=== PATIENT | female | born 1990 | race Caucasian/White ===

== ENCOUNTER 2016-10-09 06:00 | Inpatient (IN) ==
[2016-10-09] MEDS ORDERED: Famotidine 20 MG/2 ML VIAL IVP PRN (08:55)
[2016-10-09] MEDS ORDERED: Ondansetron 4 MG/2 ML VIAL IVP PRN (08:55)
[2016-10-09] MEDS ORDERED: Metoclopramide 10 MG/2 ML VIAL IVP PRN (08:55)
[2016-10-09] MEDS ORDERED: Naloxone 0.4 MG/ML INJ IVP PRN (08:55)
[2016-10-09] MEDS ORDERED: miSOPROStol 25 MCG TABLET VG PRN (08:55)
--- NOTE | 2016-10-09 09:13 | OB/GYN History & Physical ---
Date of Encounter: 10/09/16 Time of Encounter: 09:09 Assessment and Plan (1) Postmaturity , 40-42 weeks gestation Current visit: Yes Status: Acute Labor induction - Cytotec -Monitor normal progression. History of Present Illness HPI: Ms. Du is a 25 year old female who is otherwise healthy at 40 weeks and 4 days is presenting for labor induction due to failure of sponataneous labor and being post due date. Patient is group B strep negative. Pt is resting comfortably in bed with no complaints. We will procede with labor induction. She states she feels her baby move frequently but is not feeling her contractions. Past Med Surg Social Fam HX - Past Medical History Medical history: no medical history Psychiatric history: no psych history - Past Surgical History Surgical History: no surgical history - Social History Smoking Status: Never smoker Smokeless Tobacco Status: No Alcohol use: none Drug use: none - Family History Mother Name: dari sandoval Age: 56 Family Member Ethnicity: Non- Living Status: Still Living Hx Family Cardiac Disorders: No Hx Family Respiratory Disorders: No Hx Family Cancer: No Hx Family GI Disorders: No Hx Family Genitourinary Disorders: No Hx Family Endocrine Disorder: Yes (hypothyroid) Hx Family Musculoskeletal Disorders: No Hx Family Neuromuscular Disorders: No Hx Family Neurologic Disorders: No Hx Family HEENT Disorders: No Hx Family Autoimmune Disorders: No Hx Family Reproductive Disorders: No Hx Family Psychosocial Disorders: No Hx Family Medical Disorders: No Obstetrical History - Pregnancies : 2 Para: 1 Medications and Allergies 19 Tablet 1 tab PO DAILY 10/09/16 [History] Allergies No Known Allergies Allergy (Verified 10/09/16 08:40) Review of System OB All systems PM: reviewed and no additional remarkable complaints except as stated - Constitutional Constitutional ROS IM: no chills, no fever(s), no headache(s) - Nose, mouth, and throat Nose, mouth and throat: no dysphagia, no vertigo - Cardiovascular Cardiovascular: no chest pain, no dyspnea, no edema, no leg edema, no lightheadedness, no pedal edema, no syncope - Respiratory Respiratory: no cough, no dyspnea - Gastrointestinal Gastrointestinal: no abdominal pain, no diarrhea, no hematemesis, no hematochezia, no melena, no nausea, no vomiting - Genitourinary Genitourinary: amenorrhea, no difficulty urinating, no difficulty voiding, no pelvic pain - Menstruation Menstruation: amenorrhea - Integumentary Integumentary: no rash Exam - Constitutional Constitutional: well developed, well nourished, no acute distress, average body habitus - HEENT HEENT: EOMI, PERRL, Normocephaly, Mucus Membranes Moist - Neck Neck exam: full ROM, trachea midline - Lungs Respiratory exam: CTAB - Cardiovascular Cardiovascular exam: RRR - Abdomen Abdomen: Present: bowel sounds normal, gravid, non tender - Extremities Extremities exam: normal capillary refill, normal inspection, radial pulses palpable and symetrical Deep Tendon Reflex Grade: 2+ Normal - Cervix Dilation: 3 Effacement: 50 Station: -2 Results Result Diagrams: 10/09/16 09:13 All other labs normal. - VTE Reasons for not Prescribing Prophylaxis: Treatment not Indicated - Low risk for VTE
[2016-10-09 09:30] LABS: Basophils # 0.1 K/mcL (0.0-0.2); Basophils % 0.7 %; Eosinophils # 0.1 K/mcL (0.0-0.6); Eosinophils % 1.2 %; Hematocrit 35.2 % (35.3-44.9); Hemoglobin 11.9 g/dL (11.5-15.4); Lymphocytes # 2.9 K/mcL (0.6-4.6); Lymphocytes % 24.3 %; Mean Corpuscular HGB Conc 33.8 g/dL (31.6-35.5); Mean Corpuscular Hemoglobin 31.7 pg (28.0-33.3); Mean Corpuscular Volume 93.9 fL (83.0-100.0); Mean Platelet Volume 9.7 fL (9.4-12.4); Monocytes # 0.8 K/mcL (0.0-1.3); Monocytes % 7.1 %; Neutrophils # 7.6 K/mcL (1.6-8.9); Platelet Count 277 K/mcL (140-400); Red Blood Count 3.75 M/mcL (3.82-4.97); Red Cell Distribution Width 13.1 % (11.5-14.5); Segmented Neutrophils % 63.7 %
--- NOTE | 2016-10-09 11:59 | OB Labor Progress Note ---
Date of Encounter: 10/09/16 Time of Encounter: 11:57 Labor Progress Note - Subjective Subjective: Pt denies significant pain at this time. - Cervix Cervix: 3/70/-1 - Heart Tones Heart Tones: Category I - [place]: irregular - Interventions Interventions: AROM for small amount clear fluid. - Plan Plan: Continue to monitor. EPidural when requested. Anticipate .
[2016-10-09] MEDS ORDERED: Epidural Premix (fent/bupiv) 110 ML EP SCH (12:15)
[2016-10-09] MEDS: Ringers Solution, Lactated 1,000 ML IVC SCH ×2 (13:03→16:02)
[2016-10-09] MEDS ORDERED: Epidural Premix (fent/bupiv) 110 ML EP ONE (14:14)
--- NOTE | 2016-10-09 14:51 | Anesthesia Evaluation PreOp ---
Date of Encounter: 10/09/16 Time of Encounter: 14:20 - Past History Planned Operation: JERRY Cardiac History: Denies any Significant Hx Pulmonary History: Denies Any Significant HX PRIMARY SPECIAL EDUCATOR History: Denies Any Significant HX Other Medical History: Denies Any Significant HX Anesthesia History: No Prior Anesthetic Complications : Yes Test: Positive Alcohol Use: none Drug use: none Medications and Allergies 19 Tablet 1 tab PO DAILY 10/09/16 [History] Allergies No Known Allergies Allergy (Verified 10/09/16 08:40) - Meds/Allergy Pre-op Review Medications Reviewed: Yes Allergies Reviewed: Yes Beta Blockers on Current Med List: No Anesthesia Results - Labs 10/09/16 09:13 Anesthesia Exam Blood glucose: 66 Weight: 94KG Pain Scale: 3 - HEENT Pupil (Motor): Pupils equal Mallampati: II Teeth: Normal Oral Opening: Greater than 3 - PRIMARY SPECIAL EDUCATOR LOC: Oriented PRIMARY SPECIAL EDUCATOR Motor: Normal RUE, Normal LUE, Normal RLE, Normal LLE, Normal Face PRIMARY SPECIAL EDUCATOR Sensory: Normal: RUE, LUE, RLE, LLE, Face - Cardiac Rhythm: Regular Murmur: None JVD: No Carotid Bruit: No - Pulmonary Breath Sounds: bilateral Clear Respiratory Effort: Symmetrical Anesthesia Assess/Plan ASA Score: 1 Modified [place] Scale for Level of Consciousness: Cooperative, oriented, and tranquil Anesthetic Plan: Regional Autologous Blood: No Monitoring Plan: Standard Monitors
--- NOTE | 2016-10-09 14:53 | Anesthesia Procedures ---
Date of Encounter: 10/09/16 Time of Encounter: 14:20 Procedures: Anesthesia - Epidural/Spinal Patient ID/Chart reviewed: Yes OB Eval: Gestational age: 40.3 OB Eval: : 2 OB Eval: Hx Para: 1 OB Eval: Dilated at (cm): 4 OB Eval: Contractions: Non-stressed pattern Site Prep: Aseptic Technique, Sterile prep and drape, Povidone-Iodine 1% Patient position: upright Local Anesthetic: Lidocaine 1% Amount of Local Anesthetic used: 3 Touhy Needle Gauge: 18 Touhy Needle Depth (cm): 6 Catheter Depth at Skin (cm): 9 Test Dose (1.5% Lido + Epi): Volume given (mls): 3 Test Dose Result: Negative Catheter Secured in Place: Tegaderm, Tape Interspace Used: L4-L5 Loss of Resistance (CORIN): Yes Blood: No CSF: No Paresthesia: No Vitals + FHT's: stable throughout see nursing assessment
--- NOTE | 2016-10-09 15:26 | OB Labor Progress Note ---
Date of Encounter: 10/09/16 Time of Encounter: 15:24 Labor Progress Note - Subjective Subjective: Pt comfortable with epidural. - Cervix Cervix: 4/90/-1 - Heart Tones Heart Tones: Category I - [place]: 2-3 minutes - Interventions Interventions: IUPC placed. - Plan Plan: Continue to monitor. Anticipate .
[2016-10-09] MEDS ORDERED: EPHEDrine 50 MG/ML VIAL ONE (15:36)
[2016-10-09] MEDS ORDERED: Oxytocin 20 units/ LR 1000 mL 20 UNIT/1,000 ML BAG IVC ONE ×2 (18:04→19:59)
--- NOTE | 2016-10-09 19:17 | OB/GYN Procedure Note ---
Delivery - Delivery Date: 10/09/16 Provider: Doris Brock Intrapartum events: none Delivery induction: AROM, misoprostol Delivery monitor: external FHT, external uterine, internal uterine Anesthesia: epidural Estimated Blood Loss: 350 - Repair Episiotomy: none Laceration Description: Periurethral, Perineal - 2nd Degree - Complications Delivery complications: none Delivery comments: Called to room with patient complete and +2 station. Under maternal effort she delivered a viable female weighing 10 lbs. 2 oz. and Apgars 8 and 9 at one and 5 minutes respectively over a second-degree perineal laceration. Following delivery of the head there was no nuchal cord or shoulder dystocia was encountered. The remainder of the infant delivered with maternal effort. The infant was placed on mom's abdomen. Cord was allowed to cease pulsations and was clamped and cut. Second degree perineal laceration was repaired with 3- 0 monocryl. The periurethral was reapproximated with the same suture in a simple stitch. Hemostasis is assured. Placenta delivered spontaneous, complete, and intact with a 3 vessel cord. Mother and infant are recovering in the LDR in stable condition. - Disposition Mom disposition: stable in LDR disposition: stable in LDR
[2016-10-09] MEDS ORDERED: Acetaminophen 325 MG TABLET PO PRN (19:59)
[2016-10-09] MEDS ORDERED: Oxytocin 20 units/ LR 1000 mL 20 UNIT/1,000 ML BAG IV SCH (19:59)
[2016-10-09] MEDS: Ibuprofen 600 MG TABLET PO PRN (22:57)
[2016-10-10] MEDS: Ibuprofen 600 MG TABLET PO PRN (08:12)
[2016-10-10] MEDS ORDERED: Benzocaine/Menthol 56 GM AEROSOL SPRAY TP PRN (08:17)
[2016-10-10 08:23] VITALS: BP 119/81
[2016-10-10] MEDS ORDERED: Prenatal Vit/FA 1 EACH TABLET PO SCH (09:00)
--- NOTE | 2016-10-10 09:55 | Discharge Summary ---
Date of Encounter: 10/10/16 Time of Encounter: 09:53 - Discharge Diagnosis (1) (normal spontaneous vaginal delivery) Priority: Primary Status: Acute Comments: Pt meeting milestones. - Discharge Medications Prescriptions: Ibuprofen [Motrin] 600 mg PO Q6HR PRN #60 tablet PRN Reason: Cramping Docusate [Colace] 100 mg PO BID #60 capsule Home Medications: 19 Tablet 1 tab PO DAILY 10/09/16 [History] Benzocaine/Menthol [place] [Dermoplast [place]] 1 appl TP QID PRN #0 aerosol [Rx] Docusate [Colace] 100 mg PO BID #60 capsule 10/10/16 [Rx] Ibuprofen [Motrin] 600 mg PO Q6HR PRN #60 tablet 10/10/16 [Rx] Allergies/Adverse Reactions: Allergies No Known Allergies Allergy (Verified 10/09/16 08:40) Data Procedures and tests throughout hospitalization: Laboratory Tests 10/09/16 09:13 WBC 11.9 H RBC 3.75 L Hgb 11.9 Hct 35.2 L MCV 93.9 MCH 31.7 MCHC 33.8 RDW 13.1 Plt Count 277 MPV 9.7 Immature Gran % 3.0 Seg Neutrophils % 63.7 Lymphocytes % 24.3 Monocytes % 7.1 Eosinophils % 1.2 Basophils % 0.7 Neutrophils # 7.6 Lymphocytes # 2.9 Monocytes # 0.8 Eosinophils # 0.1 Basophils # 0.1 Date of admission: 10/09/16 08:26 Primary care physician: Margie Reyes CNP Consults: 10/09/16 19:59 Consult to Inside Polisher [CONS] Routine Comment: Vaginal delivery, consult needed Discharging clinician: Lou Hernandez Anticipated date of discharge: 10/10/16 - Patient Status Disposition: Home, Self-Care Condition: Good Functional capacity at discharge: independent ambulation Overall status at discharge: patient is progressing back to baseline - Discharge Instructions Follow Up With: Margie Reyes CNP [Primary Care Provider] - Doris Brock DO [Partnered Physician] - - Diet and Activity Activity: increase activity as tolerated Diet: advance to your usual diet Hospital Course Reason for admission: induction of labor Delivery: Episiotomy: none Laceration: none Other procedures: none complications: none Discharge diagnosis: IUP at term delivered baby: female Hospital course: - Delivery Date: 10/09/16 Provider: Doris Brock Intrapartum events: none Delivery induction: AROM, misoprostol Delivery monitor: external FHT, external uterine, internal uterine Anesthesia: epidural Estimated Blood Loss: 350 - Repair Episiotomy: none Laceration Description: Periurethral, Perineal - 2nd Degree - Complications Delivery complications: none - Disposition Mom disposition: home PPD#1 disposition: home with mother, Time Attestation: Total time spent providing and/or coordinating discharge services: Time Spent: Less than 30 minutes Exam - Constitutional Vitals: Temp Pulse Resp BP Pulse Ox 97.4 F L 70 16 119/81 97 10/10/16 08:21 10/10/16 08:21 10/10/16 08:21 10/10/16 08:21 10/10/16 08:21 General appearance IM: A&O X 3, pleasant, no acute distress - Respiratory Respiratory exam: Present: CTAB - Cardiovascular Cardiovascular exam IM: Present: RRR, +S1, +S2 - GI/Abdominal GI/Abdominal exam IM: soft - Rectal Rectal exam: deferred - Uterine Tone: Firm - Extremities Exam Extremities exam IM: Present: normal inspection - Neurological Exam Neurological exam: normal gait, oriented X3 - Psychiatric Additional comments: reports good mood
== END 2016-10-10 19:30 | disposition home or self-care (01) | DRG 775 ==
LOC: 1NENULAB 08:26 → 1NENUOBS 21:06
PROVIDERS: ADMIT Obstetrics & Gynecology; ATTEND Obstetrics & Gynecology